=== PATIENT | female | born 1940 | race Caucasian/White ===

== ENCOUNTER 2018-08-31 22:10 | Emergency (ER) | payer OTHER ==
[~2018-08-31] VITALS: Ht 154.9 cm; Wt 52.2 kg
[2018-08-31 22:10] VITALS: BP_SYST 148
[2018-08-31] MEDS ORDERED: LIDOCAINE 1% 10 MG/ML, 20 ML MDV IJ ONE (22:15)
[2018-08-31] MEDS ORDERED: BACITRACIN 1 GM OINT TP ONE (22:15)
[2018-08-31] MEDS ORDERED: LIDOCAINE 4% TOPICAL 50 ML BOTTLE MM ONE (22:15)
[2018-08-31] MEDS ORDERED: TRAZ-123 PO ×2 (22:17)
[2018-08-31] MEDS ORDERED: SERT50TA12 PO (22:17)
[2018-08-31] MEDS ORDERED: GABA-529 PO (22:17)
[2018-08-31] MEDS ORDERED: CYAN100T PO (22:17)
[2018-08-31 23:41] VITALS: BP_SYST 168
== END 2018-08-31 23:40 | disposition home or self-care (01) ==
LOC: SED 22:10
DX: S01.01XA Laceration without foreign body of scalp, initial encounter (principal); G30.9 Alzheimer's disease, unspecified; R03.0 Elevated blood-pressure reading, without diagnosis of hypertension; W01.0XXA Fall on same level from slipping, tripping and stumbling without subsequent striking against object, initial encounter; Y93.89 Activity, other specified; Y92.89 Other specified places as the place of occurrence of the external cause; Y99.8 Other external cause status
CPT/HCPCS: 12001; 70450; 99284; J2001

== ENCOUNTER 2018-09-10 15:36 | Emergency (ER) | payer OTHER ==
[~2018-09-10] VITALS: Ht 160 cm; Wt 52.2 kg
[~2018-09-10 15:36] MED LIST: CYAN100T PO; GABA-529 PO; SERT50TA12 PO; TRAZ-123 PO
[2018-09-10 15:55] VITALS: BP_SYST 161
[2018-09-10 17:35] VITALS: BP_SYST 154
== END 2018-09-10 17:46 | disposition home or self-care (01) ==
LOC: SED 15:36
DX: S01.01XD Laceration without foreign body of scalp, subsequent encounter (principal); G30.9 Alzheimer's disease, unspecified; Z79.899 Other long term (current) drug therapy; W01.0XXD Fall on same level from slipping, tripping and stumbling without subsequent striking against object, subsequent encounter
CPT/HCPCS: 70450-TC; 99284